=== PATIENT | female | born 1985 | race Caucasian/White ===

== ENCOUNTER 2021-08-21 02:29 | Emergency (ER) | payer OTHER ==
[~2021-08-21] VITALS: Ht 175.3 cm; Wt 68.0 kg
[2021-08-21 02:35] VITALS: BP 129/84
--- NOTE | 2021-08-21 02:46 | PHYS DOC ---
Past History Past Medical History: Anxiety, Hypertension Past Surgical History: Appendectomy General Adult EDM: Chief Complaint: MECHANICAL FALL HPI: HPI: ".. She was just walking and tripped.. fell backwards .. and hit her head.. it is bleeding somewhere... she had be drinking heavy." ( Friend) " .. I ve... been.. drinking ... heavy.... ".. " heavy... " ( Pt. 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 Pt has contusion, hematoma and abrasion right scalp.. Some mild upper neck tenderness. Patient reportedly up-to-date with vaccinations. Patient has been drinking alcohol very heavily tonight.. Patient at [employer] for training. No history immunosuppression. No history of significant medical problems. Review of Systems: Review of Systems: Constitutional: Denies fever or chills Eyes: Denies change in visual acuity HENT: Complains of head injury Respiratory: Denies cough or shortness of breath Cardiovascular: Denies chest pain or edema GI: Denies abdominal pain, nausea, vomiting, bloody stools or diarrhea : Denies dysuria Musculoskeletal: Denies back pain or joint pain Integument: Denies rash Neurologic: Complaints of headache,. Denies focal weakness or sensory changes Endocrine: Denies polyuria or polydipsia Lymphatic: Denies swollen glands Psychiatric: Denies depression or anxiety Family History: Family History: Noncontributory presentation Current Medications: Current Meds: See nursing for home meds Allergies: Allergies: Allergies Coded Allergies Type Severity Reaction Last Updated Verified Penicillins Allergy Unknown 08/21/21 Yes Physical Exam: PE: Constitutional: Well developed, well nourished, no acute distress, very intoxicated in appearance. [] HENT: Normocephalic, contusion, abrasion and hematoma to scalp, bilateral e xternal ears normal, oropharynx moist, no oral exudates, nose normal. [] Eyes: PERRLA, EOMI, conjunctiva normal, no discharge. [] Neck: Normal range of motion, no tenderness, supple, no stridor. [] Cardiovascular:Heart rate regular rhythm, no murmur [] Lungs & Thorax: Bilateral breath sounds to apex auscultation [] Abdomen: Bowel sounds normal, soft, no tenderness, no masses, no pulsatile masses. Surgical scar Skin: Warm, dry, no erythema, no rash. [] Back: No tenderness, no CVA tenderness. [] Extremities: No tenderness, no cyanosis, no clubbing, ROM intact, no edema. [] Neurologic: Alert and oriented X 3, normal motor function, normal sensory function, no focal deficits noted. Discoordinated. Staggering gait. Trash Man equal. No drift. DTRs +2 patella and brachial. Psychologic: Affect anxious, judgement impaired, mood normal. [] Current Patient Data: Vital Signs: Vital Signs Date Time Temp Pulse Resp B/P (MAP) Pulse Ox O2 Delivery O2 Flow Rate FiO2 08/21/21 02:35 97.5 114 20 129/84 (99) 95 Room Air EKG: EKG: [] Radiology/Procedures: Radiology/Procedures: [][address] [address] IMAGING REPORT Signed PATIENT: AMADO ARZATE ACCOUNT: [id number] : 1985 LOCATION: ER AGE: 35 SEX: F EXAM STATUS: REG ER ORD. PHYSICIAN: LAMINE LARA MD REASON: Head injury from standing fall, very intoxicated. PROCEDURE: CT HEAD AND CERVICAL SPINE WO CT Head W/O Contrast: History: Reason: Head injury from standing fall, very intoxicated. / Spl. Instructions: / History: Comparison: none Axial images were obtained without contrast. The reed and white matter appears normal and symmetrical for the patients age. There is no mass effect, extraaxial fluid collections or hydrocephalus. There is no gross bleed. There is no focal loss of reed-white matter distinction to suggest acute ischemia, i.e. stroke. Impression: No acute findings. End of impression CT C-Spine without contrast: Clinical History: Reason: Head injury from standing fall, very intoxicated. / Spl. Instructions: / History: Technique: Axial helical images of the cervical spine were obtained without contrast, axial coronal and sagittal reconstruction was performed. Findings: There is no loss of vertebral body stature. There is no prevertebral soft tissue swelling. The vertebral bodies are well aligned. The C1-C2 relationship is normal. The visualized osseous structures appear normal. There is straightening of the normal cervical lordosis which can be positional or can be secondary to muscle spasm. Evaluation of the central canal is limited without contrast. There is moderate motion artifact. Impression: Limited study. No acute findings. Clinical correlation suggested. PQRS Compliance Statement: One or more of the following individualized dose reduction techniques were utilized for this examination: 1. Automated exposure control 2. Adjustment of the mA and/or kV according to patient size 3. Use of iterative reconstruction technique Electronically signed by: Sissy Reddy III, MD (08/21/2021 3:39 AM) [facility] DICTATED AND SIGNED BY: SISSY REDDY III, MD Heart Score: C/O Chest Pain: N/A Risk Factors: Risk Factors: DM, Current or recent (<one month) smoker, HTN, HLP, family history of CAD, obesity. Risk Scores: Score 0 - 3: 2.5% MACE over next 6 weeks - Discharge Home Score 4 - 6: 20.3% MACE over next 6 weeks - Admit for Clinical Observation Score 7 - 10: 72.7% MACE over next 6 weeks - Early Invasive Strategies Course & Med Decision Making: Course & Med Decision Making Pertinent Labs and Imaging studies reviewed. (See chart for details) Scalp Wound cleaned with peroxide. Patient avoid further alcohol tonight. Patient may take Tylenol for pain. Applied Polysporin to abrasions area of the scalp 4 times a day until healed. No direct shower water. Pt. ambulatory without problems at 0540 hrs. No longer dis coordinated. Impression: 1. Head Injury 2. Head Contusion and hematoma, abrasion 3. Alcohol Intoxication- 354 [] Dragon Disclaimer: Dragon Disclaimer: This electronic medical record was generated, in whole or in part, using a voice recognition dictation system. Departure Departure: Referrals: PCP,NO (PCP) Dragon Disclaimer This chart was dictated in whole or in part using Voice Recognition software in a busy, high-work load, and often noisy Emergency Department environment. It may contain unintended and wholly unrecognized errors or omissions. Dragon Disclaimer This chart was dictated in whole or in part using Voice Recognition software in a busy, high-work load, and often noisy Emergency Department environment. It may contain unintended and wholly unrecognized errors or omissions. Dragon Disclaimer This chart was dictated in whole or in part using Voice Recognition software in a busy, high-work load, and often noisy Emergency Department environment. It may contain unintended and wholly unrecognized errors or omissions. LAMINE LARA MD August 21, 2021 02:46
[2021-08-21] MEDS ORDERED: FOLIC ACID 1 MG TABLET PO ONE (03:15)
[2021-08-21] MEDS ORDERED: MVI, ADULT NO.4 WITH VIT K 10 ML, THIAMINE INJ 100 MG in IV RINGERS SOLUTION,LACTATED 1... IV ONE (03:15)
[2021-08-21] MEDS ORDERED: THIAMINE 200 MG/2 ML VIAL. IV ONE (03:25)
[2021-08-21] MEDS ORDERED: MVI, ADULT NO.4 WITH VIT K 10 ML VIAL IV ONE (03:26)
--- NOTE | 2021-08-21 03:42 | RAD ---
CT Head W/O Contrast: History: Reason: Head injury from standing fall, very intoxicated. / Spl. Instructions: / History: Comparison: none Axial images were obtained without contrast. The reed and white matter appears normal and symmetrical for the patients age. There is no mass effe ct, extraaxial fluid collections or hydrocephalus. There is no gross bleed. There is no focal loss of reed-white matter distinction to suggest acute ischemia, i.e. stroke. Impression: No acute findings. End of impression CT C-Spine without contrast: Clinical History: Reason: Head injury from standing fall, very intoxicated. / Spl. Instructions: / H istory: Technique: Axial helical images of the cervical spine were obtained without contrast, axial coronal and sagittal reconstruction was performed. Findings: There is no loss of vertebral body stature. There is no prevertebral soft tissue swelling. The vert ebral bodies are well aligned. The C1-C2 relationship is normal. The visualized osseous structures a ppear normal. There is straightening of the normal cervical lordosis which can be positional or can b e secondary to muscle spasm. Evaluation of the central canal is limited without contrast. There is mo derate motion artifact. Impression: Limited study. No acute findings. Clinical correlation suggested. PQRS Compliance Statement: One or more of the following individualized dose reduction techniques were utilized for this examinat ion: 1. Automated exposure control 2. Adjustment of the mA and/or kV according to patient size 3. Use of iterative reconstruction technique Electronically signed by: Luis Antonio Marcano III, MD (08/21/2021 3:39 AM) [facility]
== END 2021-08-21 05:40 | disposition home or self-care (01) ==
LOC: EDBD 02:29 → ER 02:29
DX: S00.03XA Contusion of scalp, initial encounter (principal); F41.9 Anxiety disorder, unspecified; I10 Essential (primary) hypertension; F10.129 Alcohol abuse with intoxication, unspecified; Z88.0 Allergy status to penicillin; Y90.8 Blood alcohol level of 240 mg/100 ml or more; W01.0XXA Fall on same level from slipping, tripping and stumbling without subsequent striking against object, initial encounter; Y93.89 Activity, other specified; Y92.89 Other specified places as the place of occurrence of the external cause; Y99.8 Other external cause status
CPT/HCPCS: 36415; 70450; 72125; 96374; 99284; G0480; J7120